=== PATIENT | female | born 1990 | race Caucasian/White ===

== ENCOUNTER 2017-10-01 15:36 | Emergency (ER) | payer OTHER ==
[~2017-10-01] VITALS: Ht 157.5 cm; Wt 43.1 kg
[~2017-10-01 15:36] MED LIST: ALBU90I INH; ALBU90OI INH; AMOCLA500 PO; AMOX250 PO; AZIT250 PO; DOCU100 PO; DOXY100 PO; FLUSAL2505 INH; HYDCHL25 PO; IPRAIS NEB; MONT10T PO; MYCO250 PO; Mucinex600 MG PO; OMEPRAZOLE MAGN20 MG; Omeprazole20 M1 PO; Prednisone20 MG PO; SULTRISS PO; THYROID MED; TIOT18; TIOT18 INH; Ventolin Soln3 ML INH; Zithromax250 MG PO
[2018-06-30] MEDS ORDERED: ALBU90OI INH (11:39)
[2018-06-30] MEDS ORDERED: ALBU3IS INH (11:39)
[2018-06-30] MEDS ORDERED: Prednisone20 MG PO (11:39)
[2018-07-01] MEDS ORDERED: Augmentin 875-1 EACH PO (10:06)
[2018-07-15] MEDS ORDERED: BUDE6HFA (18:04)
[2018-07-15] MEDS ORDERED: TIOT18 (18:04)
== END 2017-10-01 16:25 | disposition home or self-care (01) ==
LOC: ER 15:36
DX: S50.01XA Contusion of right elbow, initial encounter (principal); J44.9 Chronic obstructive pulmonary disease, unspecified; Z87.891 Personal history of nicotine dependence; X58.XXXA Exposure to other specified factors, initial encounter; Y93.72 Activity, wrestling
CPT/HCPCS: 73080; 99283

== ENCOUNTER 2018-08-27 10:46 | Emergency (ER) | payer BC, OTHER ==
[~2018-08-27] VITALS: Ht 157.5 cm; Wt 44.0 kg
[~2018-08-27 10:46] MED LIST changes: +ALBU3IS INH; +Augmentin 875-1 EACH PO; +BUDE6HFA
[2018-08-27 11:14] LABS: Source, Urine Clean Catch
[2018-08-27 11:20] LABS: Bilirubin, Urine Neg (Neg); Blood, Urine 5+ (Neg); Glucose Qualitative, Urine Neg (Neg); Ketones, Urine 1+ (Neg); Leukocyte Esterase, Urine Neg (Neg); Nitrite, Urine Neg (Neg); Protein, Urine 4+ (Neg); Urobilinogen, Urine NORM (Normal)
[2018-08-27 11:20] LABS: BASOPHILS ABSOLUTE AUTO 0.04 K/mm3 (0.00-0.23); BASOPHILS PERCENT AUTO 0 % (0-2); EOSINOPHILS ABSOLUTE AUTO 0.04 K/mm3 (0.00-0.68); EOSINOPHILS PERCENT AUTO 0 % (0-6); Hemoglobin 13.6 g/dL (11.5-16.0); IMMATURE GRAN ABSOLUTE AUTO 0.02 K/mm3 (0.00-0.10); IMMATURE GRAN PERCENT AUTO 0 % (0-1); LYMPHOCYTES PERCENT AUTO 15 % (21-46); MONOCYTES ABSOLUTE AUTO 0.86 K/mm3 (0.16-1.47); MONOCYTES PERCENT AUTO 7 % (4-13); Mean Corpuscular HGB 31.5 pg (26.0-34.0); Mean Corpuscular Volume 93 fL (80-100); Mean Platelet Volume 9.5 fL (9.1-12.4); NEUTROPHILS ABSOLUTE AUTO 9.42 K/mm3 (1.96-9.15); NEUTROPHILS PERCENT AUTO 77 % (41-73); Platelet Count 268 K/mm3 (150-400); RDW Coefficient Variation 11.6 % (11.7-14.2); RDW Standard Deviation 39.8 fL (35.1-46.3); Red Blood Cell Count 4.32 M/mm3 (3.80-5.20); White Blood Cell Count 12.18 K/mm3 (4.00-11.30)
[2018-08-27 11:44] LABS: Appearance, Urine Hazy (Clear); Color, Urine Yellow (P-Yellow)
[2018-08-27 11:45] LABS: Alanine Aminotransfer (ALT/SGP 11 U/L (12-78); Albumin, Blood 3.2 g/dL (3.4-5.0); Albumin/Globulin Ratio 0.9 (0.8-1.8); Alk Phos 58 U/L (50-136); Anion Gap 9 mmol/L (6-16); Aspartate Aminotrans (AST/SGOT 15 U/L (12-37); Bilirubin, Total 0.5 mg/dL (0.1-1.0); Blood Urea Nitrogen 11 mg/dL (8-24); Bun/Creatinine Ratio 14.5 (12.0-20.0); CO2, Blood 24 mmol/L (21-32); Calcium, Blood 8.2 mg/dL (8.5-10.1); Chloride, Blood 106 mmol/L (98-108); Creatinine, Blood 0.76 mg/dL (0.40-1.00); Globulin, Blood 3.7 g/dL (2.2-4.0); Glomerular Filtration Rate >60 (60-); Glucose, Blood 86 mg/dL (70-99); Potassium, Blood 3.6 mmol/L (3.5-5.5); Sodium, Blood 139 mmol/L (136-145); Total Protein, Blood 6.9 g/dL (6.4-8.2)
[2018-08-27 11:46] LABS: Bacteria Few /hpf; Squamous Epithelial Cells Few /hpf (Few); White Blood Cells, Urine Not Seen /hpf (0-5)
[2018-08-27] MEDS ORDERED: CEPH500 PO (12:28)
[2018-08-27] MEDS ORDERED: Zofran4 MG PO (12:28)
[2018-10-04] MEDS ORDERED: CEPH500 PO (11:43)
== END 2018-08-27 12:49 | disposition home or self-care (01) ==
LOC: ER 10:46
PROVIDERS: Emergency Medicine
DX: O21.1 Hyperemesis gravidarum with metabolic disturbance (principal); O23.41 Unspecified infection of urinary tract in pregnancy, first trimester; O99.511 Diseases of the respiratory system complicating pregnancy, first trimester; J44.9 Chronic obstructive pulmonary disease, unspecified; Z87.891 Personal history of nicotine dependence; Z79.899 Other long term (current) drug therapy; Z3A.01 Less than 8 weeks gestation of pregnancy
CPT/HCPCS: 36415; 80053; 81001; 83690; 85025; 96361; 96374; 99284-25; J2405; J7120

== ENCOUNTER 2018-09-03 08:47 | Emergency (ER) | payer BC, OTHER ==
[~2018-09-03] VITALS: Ht 157.5 cm; Wt 44.0 kg
[~2018-09-03 08:47] MED LIST changes: +CEPH500 PO; +Zofran4 MG PO
[2018-09-03 09:40] LABS: Calcium, Ionized (POC) 1.18 mmol/L (1.10-1.46); Chloride (POC) 101 mmol/L (98-108); Creatinine (POC) 0.8 mg/dL (0.6-1.0); Glucose (ISTAT POC) 81 mg/dL (70-99); Hemoglobin (POC) 15.6 g/dL (12.0-16.0); Potassium (POC) 3.7 mmol/L (3.5-5.5); Sodium (POC) 139 mmol/L (135-148); Total CO2 (POC) 23 mmol/L (21-32)
[2018-09-03] MEDS ORDERED: Zofran4 MG PO (12:53)
[2018-09-03] MEDS ORDERED: PROM25 PO (12:53)
[2018-10-04] MEDS ORDERED: CEPH500 PO (11:43)
== END 2018-09-03 13:04 | disposition home or self-care (01) ==
LOC: ER 08:47
PROVIDERS: Emergency Medicine
DX: O21.0 Mild hyperemesis gravidarum (principal); O99.511 Diseases of the respiratory system complicating pregnancy, first trimester; J44.9 Chronic obstructive pulmonary disease, unspecified; Z87.891 Personal history of nicotine dependence; Z79.899 Other long term (current) drug therapy; Z3A.01 Less than 8 weeks gestation of pregnancy
CPT/HCPCS: 36415; 80047; 85014; 96361; 96374; 99284-25; J2405; J7120

== ENCOUNTER 2018-09-27 09:40 | Emergency (ER) | payer BC, OTHER ==
[~2018-09-27] VITALS: Ht 157.5 cm; Wt 43.5 kg
[~2018-09-27 09:40] MED LIST changes: +PROM25 PO
[2018-09-27] MEDS ORDERED: BONJESTA ER 201 EACH PO (10:03)
[2018-09-27] MEDS ORDERED: Ranitidine HCl150 M1 PO (10:05)
[2018-09-27] MEDS ORDERED: PROM25 PO (10:05)
[2018-09-27 11:18] LABS: Source, Urine Clean Catch
[2018-09-27 11:36] LABS: Appearance, Urine Hazy (Clear); Bilirubin, Urine Neg (Neg); Blood, Urine 4+ (Neg); Color, Urine Yellow (P-Yellow); Glucose Qualitative, Urine Neg (Neg); Ketones, Urine Neg (Neg); Leukocyte Esterase, Urine 1+ (Neg); Nitrite, Urine Neg (Neg); Protein, Urine 4+ (Neg); Specific Gravity, Urine 1.025 (1.003-1.022); Urobilinogen, Urine NORM (Normal)
[2018-09-27 11:45] LABS: Calcium, Ionized (POC) 1.17 mmol/L (1.10-1.46); Chloride (POC) 105 mmol/L (98-108); Creatinine (POC) 0.7 mg/dL (0.6-1.0); Glucose (ISTAT POC) 85 mg/dL (70-99); Hemoglobin (POC) 13.3 g/dL (12.0-16.0); Potassium (POC) 4.3 mmol/L (3.5-5.5); Sodium (POC) 137 mmol/L (135-148); Total CO2 (POC) 23 mmol/L (21-32)
[2018-09-27 11:56] LABS: Bacteria Mod /hpf; Squamous Epithelial Cells Mod /hpf (Few)
[2018-10-04] MEDS ORDERED: CEPH500 PO (11:43)
== END 2018-09-27 12:13 | disposition home or self-care (01) ==
LOC: ER 09:40
PROVIDERS: Physician Assistant
DX: E86.0 Dehydration (principal); M79.10 Myalgia, unspecified site; Z79.899 Other long term (current) drug therapy; J44.9 Chronic obstructive pulmonary disease, unspecified; Z87.891 Personal history of nicotine dependence
CPT/HCPCS: 80047; 81001; 85014; 87086; 99283

== ENCOUNTER 2018-10-25 13:40 | Emergency (ER) | payer BC, OTHER ==
[~2018-10-25] VITALS: Ht 157.5 cm; Wt 45.4 kg
[~2018-10-25 13:40] MED LIST changes: +BONJESTA ER 201 EACH PO; +Ranitidine HCl150 M1 PO
[2018-10-25 15:00] LABS: BASOPHILS ABSOLUTE AUTO 0.03 K/mm3 (0.00-0.23); BASOPHILS PERCENT AUTO 0 % (0-2); EOSINOPHILS ABSOLUTE AUTO 0.07 K/mm3 (0.00-0.68); EOSINOPHILS PERCENT AUTO 1 % (0-6); Hematocrit 39.3 % (33.0-51.0); Hemoglobin 13.4 g/dL (11.5-16.0); IMMATURE GRAN ABSOLUTE AUTO 0.06 K/mm3 (0.00-0.10); IMMATURE GRAN PERCENT AUTO 1 % (0-1); LYMPHOCYTES PERCENT AUTO 14 % (21-46); MONOCYTES ABSOLUTE AUTO 0.77 K/mm3 (0.16-1.47); MONOCYTES PERCENT AUTO 7 % (4-13); Mean Corpuscular HGB 32.2 pg (26.0-34.0); Mean Corpuscular HGB Conc 34.1 g/dL (31.5-36.5); Mean Corpuscular Volume 95 fL (80-100); Mean Platelet Volume 9.3 fL (9.1-12.4); NEUTROPHILS ABSOLUTE AUTO 8.71 K/mm3 (1.96-9.15); NEUTROPHILS PERCENT AUTO 78 % (41-73); Platelet Count 282 K/mm3 (150-400); RDW Coefficient Variation 12.4 % (11.7-14.2); RDW Standard Deviation 42.8 fL (35.1-46.3); Red Blood Cell Count 4.16 M/mm3 (3.80-5.20); White Blood Cell Count 11.24 K/mm3 (4.00-11.30)
[2018-10-25 15:23] LABS: Alanine Aminotransfer (ALT/SGP 26 U/L (12-78); Albumin, Blood 2.7 g/dL (3.4-5.0); Albumin/Globulin Ratio 0.7 (0.8-1.8); Alk Phos 48 U/L (50-136); Anion Gap 10 mmol/L (6-16); Aspartate Aminotrans (AST/SGOT 16 U/L (12-37); Bilirubin, Total 0.2 mg/dL (0.1-1.0); Blood Urea Nitrogen 10 mg/dL (8-24); Bun/Creatinine Ratio 14.1 (12.0-20.0); CO2, Blood 23 mmol/L (21-32); Calcium, Blood 8.1 mg/dL (8.5-10.1); Chloride, Blood 105 mmol/L (98-108); Creatinine, Blood 0.71 mg/dL (0.40-1.00); Globulin, Blood 4.1 g/dL (2.2-4.0); Glomerular Filtration Rate >60 (60-); Glucose, Blood 78 mg/dL (70-99); Potassium, Blood 3.2 mmol/L (3.5-5.5); Sodium, Blood 138 mmol/L (136-145); Total Protein, Blood 6.8 g/dL (6.4-8.2)
[2018-10-25 15:37] LABS: Source, Urine Clean Catch
[2018-10-25 15:49] LABS: Appearance, Urine Clear (Clear); Bilirubin, Urine Neg (Neg); Blood, Urine 5+ (Neg); Color, Urine Yellow (P-Yellow); Glucose Qualitative, Urine Neg (Neg); Ketones, Urine Neg (Neg); Leukocyte Esterase, Urine Neg (Neg); Nitrite, Urine Neg (Neg); Protein, Urine 3+ (Neg); Specific Gravity, Urine 1.025 (1.003-1.022); Urobilinogen, Urine NORM (Normal)
[2018-10-25 16:02] LABS: Bacteria Not Seen /hpf; Squamous Epithelial Cells Few /hpf (Few); White Blood Cells, Urine Not Seen /hpf (0-5)
== END 2018-10-25 17:56 | disposition home or self-care (01) ==
LOC: ER 13:40
PROVIDERS: Physician Assistant
DX: O99.89 Other specified diseases and conditions complicating pregnancy, childbirth and the puerperium (principal); R55 Syncope and collapse; Z3A.15 15 weeks gestation of pregnancy; Z79.899 Other long term (current) drug therapy; O99.512 Diseases of the respiratory system complicating pregnancy, second trimester; J44.9 Chronic obstructive pulmonary disease, unspecified; Z87.891 Personal history of nicotine dependence
CPT/HCPCS: 36415; 71046; 80053; 81001; 83735; 85025; 93005; 93010; 96360; 99284-25; J7120

== ENCOUNTER 2018-10-26 09:34 | Emergency (ER) | payer BC, OTHER ==
[~2018-10-26] VITALS: Ht 157.5 cm; Wt 45.4 kg
[2018-10-26 11:03] LABS: Hematocrit 38.2 % (33.0-51.0); Hemoglobin 12.8 g/dL (11.5-16.0); Mean Corpuscular HGB 32.3 pg (26.0-34.0); Mean Corpuscular HGB Conc 33.5 g/dL (31.5-36.5); Mean Corpuscular Volume 97 fL (80-100); Mean Platelet Volume 9.6 fL (9.1-12.4); Platelet Count 247 K/mm3 (150-400); RDW Coefficient Variation 12.4 % (11.7-14.2); RDW Standard Deviation 43.6 fL (35.1-46.3); Red Blood Cell Count 3.96 M/mm3 (3.80-5.20); White Blood Cell Count 9.98 K/mm3 (4.00-11.30)
== END 2018-10-26 12:26 | disposition home or self-care (01) ==
LOC: ER 09:34
PROVIDERS: Emergency Medicine
DX: O20.0 Threatened abortion (principal); O99.512 Diseases of the respiratory system complicating pregnancy, second trimester; J44.9 Chronic obstructive pulmonary disease, unspecified; Z87.891 Personal history of nicotine dependence; Z79.899 Other long term (current) drug therapy; Z3A.15 15 weeks gestation of pregnancy
CPT/HCPCS: 36415; 76815; 76817; 85027; 86900; 86901; 96361; 96372-59; 96374; 99284-25; J2405; J2790; J7030

== ENCOUNTER 2018-11-18 08:46 | Emergency (ER) | payer BC, OTHER ==
[~2018-11-18] VITALS: Ht 157.5 cm; Wt 48.3 kg
[~2018-11-18 08:46] MED LIST changes: +Verotin-Gr Cap1 EACH PO
[2018-11-18] MEDS ORDERED: Zantac150 MG PO (09:01)
[2018-11-18] MEDS ORDERED: ERYT1OIN BOTHEYES (09:52)
== END 2018-11-18 10:06 | disposition home or self-care (01) ==
LOC: ER 08:46
DX: H10.9 Unspecified conjunctivitis (principal); Z79.899 Other long term (current) drug therapy; Z87.891 Personal history of nicotine dependence
CPT/HCPCS: 99283

== ENCOUNTER 2018-12-08 12:06 | Emergency (ER) | payer BC, OTHER ==
[~2018-12-08] VITALS: Ht 157.5 cm; Wt 49.9 kg
[~2018-12-08 12:06] MED LIST changes: +ERYT1OIN BOTHEYES; +Zantac150 MG PO
== END 2018-12-08 13:26 | disposition home or self-care (01) ==
LOC: ER 12:06
DX: J30.2 Other seasonal allergic rhinitis (principal); Z79.899 Other long term (current) drug therapy; J44.9 Chronic obstructive pulmonary disease, unspecified; Z87.891 Personal history of nicotine dependence
CPT/HCPCS: 99283

== ENCOUNTER 2018-12-10 13:06 | Emergency (ER) | payer BC, OTHER ==
[~2018-12-10] VITALS: Ht 157.5 cm; Wt 49.9 kg
[2018-12-10] MEDS ORDERED: NASACORT10.8 ML (13:41)
[2018-12-10] MEDS ORDERED: CLARITIN10 MG PO (13:41)
[2018-12-10] MEDS ORDERED: ZADITOR5 ML BOTHEYES (13:41)
[2018-12-10] MEDS ORDERED: ABAT250V IV (13:42)
== END 2018-12-10 13:50 | disposition home or self-care (01) ==
LOC: ER 13:06
DX: O99.512 Diseases of the respiratory system complicating pregnancy, second trimester (principal); J30.9 Allergic rhinitis, unspecified; O99.89 Other specified diseases and conditions complicating pregnancy, childbirth and the puerperium; H10.13 Acute atopic conjunctivitis, bilateral; J44.9 Chronic obstructive pulmonary disease, unspecified; Z87.891 Personal history of nicotine dependence; Z79.899 Other long term (current) drug therapy
CPT/HCPCS: 99282

== ENCOUNTER 2019-04-14 05:07 | Inpatient (IN) | payer BC, OTHER ==
[~2019-04-14] VITALS: Ht 157.5 cm; Wt 53.6 kg
[~2019-04-14 05:07] MED LIST changes: +ABAT250V IV; +CLARITIN10 MG PO; +NASACORT10.8 ML; +ZADITOR5 ML BOTHEYES
[2019-04-14] MEDS ORDERED: ALBU90OI INH (05:21)
[2019-04-14] MEDS ORDERED: BUDE6HFA INH (05:23)
[2019-04-14] MEDS ORDERED: TIOT18 INH (05:24)
[2019-04-14 05:34] LABS: BASOPHILS ABSOLUTE AUTO 0.03 K/mm3 (0.00-0.23); BASOPHILS PERCENT AUTO 0 % (0-2); EOSINOPHILS ABSOLUTE AUTO 0.17 K/mm3 (0.00-0.68); EOSINOPHILS PERCENT AUTO 2 % (0-6); Hematocrit 34.1 % (33.0-51.0); Hemoglobin 11.2 g/dL (11.5-16.0); IMMATURE GRAN ABSOLUTE AUTO 0.08 K/mm3 (0.00-0.10); IMMATURE GRAN PERCENT AUTO 1 % (0-1); LYMPHOCYTES ABSOLUTE AUTO 2.18 K/mm3 (0.84-5.20); LYMPHOCYTES PERCENT AUTO 21 % (21-46); MONOCYTES ABSOLUTE AUTO 1.05 K/mm3 (0.16-1.47); MONOCYTES PERCENT AUTO 10 % (4-13); Mean Corpuscular HGB 30.3 pg (26.0-34.0); Mean Corpuscular HGB Conc 32.8 g/dL (31.5-36.5); Mean Corpuscular Volume 92 fL (80-100); NEUTROPHILS ABSOLUTE AUTO 6.94 K/mm3 (1.96-9.15); NEUTROPHILS PERCENT AUTO 66 % (41-73); Platelet Count 274 K/mm3 (150-400); RDW Coefficient Variation 13.2 % (11.7-14.2); RDW Standard Deviation 44.1 fL (35.1-46.3); White Blood Cell Count 10.45 K/mm3 (4.00-11.30)
[2019-04-15 05:29] LABS: Hematocrit 30.9 % (33.0-51.0); Mean Corpuscular HGB 30.1 pg (26.0-34.0); Mean Corpuscular HGB Conc 32.4 g/dL (31.5-36.5); Mean Corpuscular Volume 93 fL (80-100); Mean Platelet Volume 10.2 fL (9.1-12.4); Platelet Count 218 K/mm3 (150-400); RDW Coefficient Variation 13.2 % (11.7-14.2); RDW Standard Deviation 44.5 fL (35.1-46.3); Red Blood Cell Count 3.32 M/mm3 (3.80-5.20); White Blood Cell Count 13.07 K/mm3 (4.00-11.30)
--- NOTE | 2019-04-15 09:21 | NUR ---
AGREE WITH ASSESSMENT [facility]
--- NOTE | 2019-04-15 15:10 | NUR ---
DISCHARGE INSTRUCTIONS REVIEWED WITH PATIENT AND S/O. PATIENT VERBALIZED UNDERSTANDING, DENIES ANY FURTHER QUESTIONS OR CONCERNS. BANDS MATCHED. MOM DISCHARGED HOME WITH BABY.
== END 2019-04-15 15:15 | disposition home or self-care (01) | DRG 807 ==
LOC: BC 05:07
PROVIDERS: ADMIT Advanced Practice Midwife
PROC: 10E0XZZ Delivery of Products of Conception, External Approach (ICD-10-PCS; principal; 2019-04-14)
PROC: 10907ZC Drainage of Amniotic Fluid, Therapeutic from Products of Conception, Via Natural or Artificial Opening (ICD-10-PCS; 2019-04-14)
PROC: 3E0R3BZ Introduction of Anesthetic Agent into Spinal Canal, Percutaneous Approach (ICD-10-PCS; 2019-04-14)
DX: O99.824 Streptococcus B carrier state complicating childbirth (principal); Z37.0 Single live birth; Z3A.39 39 weeks gestation of pregnancy; O99.52 Diseases of the respiratory system complicating childbirth; J44.9 Chronic obstructive pulmonary disease, unspecified; O99.354 Diseases of the nervous system complicating childbirth; G43.909 Migraine, unspecified, not intractable, without status migrainosus; O99.89 Other specified diseases and conditions complicating pregnancy, childbirth and the puerperium; N18.9 Chronic kidney disease, unspecified
CPT/HCPCS: 36415; 51702; 85025; 85027; 90471; 90707; A9270; J0290; J1885; J2001; J2405; J2590; J3010; J7120

== ENCOUNTER 2019-07-06 11:35 | Emergency (ER) | payer OTHER, BC ==
[~2019-07-06] VITALS: Ht 157.5 cm; Wt 47.2 kg
[~2019-07-06 11:35] MED LIST changes: +BUDE6HFA INH
== END 2019-07-06 12:42 | disposition home or self-care (01) ==
LOC: ER 11:35
DX: S67.193A Crushing injury of left middle finger, initial encounter (principal); W23.0XXA Caught, crushed, jammed, or pinched between moving objects, initial encounter; Y99.0 Civilian activity done for income or pay; Z79.899 Other long term (current) drug therapy; J44.9 Chronic obstructive pulmonary disease, unspecified; F17.200 Nicotine dependence, unspecified, uncomplicated
CPT/HCPCS: 73140; 99283-25